=== PATIENT | male | born 1975 | race Caucasian/White ===

== ENCOUNTER 2017-08-04 07:00 | Emergency (ER) | payer OTHER ==
[~2017-08-04] VITALS: Ht 182.9 cm; Wt 60.2 kg
[2017-08-04 09:10] VITALS: BP 151/99
== END 2017-08-04 09:15 | disposition home or self-care (01) ==
LOC: EME 07:00
DX: S01.112A Laceration without foreign body of left eyelid and periocular area, initial encounter (principal); V74.6XXA Passenger on bus injured in collision with heavy transport vehicle or bus in traffic accident, initial encounter; F17.200 Nicotine dependence, unspecified, uncomplicated